=== PATIENT | female | born 1975 | race Caucasian/White ===

== ENCOUNTER 2018-08-11 15:30 | Emergency (ER) | payer MEDICAID, OTHER ==
[2018-08-11] MEDS: ONDANSETRON (ODT) 4 MG TAB ODT (16:30)
[2018-08-11] MEDS: HYDROCODONE/APAP (10/325) TAB PO (16:32)
== END 2018-08-11 18:10 | disposition home or self-care (01) ==
LOC: E/R 15:30
DX: K46.9 Unspecified abdominal hernia without obstruction or gangrene (principal)
CPT/HCPCS: 81025; 99283